=== PATIENT | female | born 1960 | race Caucasian/White ===

== ENCOUNTER 2018-08-22 10:38 | Inpatient (IN) | payer OTHER, MEDICARE, SELFPAY ==
[2018-08-15 08:55] VITALS: BMI 36.0
[2018-08-22] VITALS (16 sets, daily range): BP systolic 82–172; BP diastolic 35–96; PULSE 70–92; RESP 11–21; TEMP 36.1–36.9; O2SAT 94–100; BMI 35.2
--- NOTE | 2018-08-22 06:00 | DI.RAD.S_ITS ---
PROCEDURE: XR PELVIS 1-2V INDICATIONS: prosthesis placement TECHNIQUE: Single view(s) of the pelvis acquired. COMPARISON: None. FINDINGS: Bones: Patient is status post right total hip arthroplasty. Right hip alignment is anatomic. No gross hardware loosening or failure. No fractures or dislocations. Severe left hip joint osteoarthritis is seen. No suspicious bony lesions. Soft tissues: Visualized bowel gas pattern is normal. No suspicious soft tissue calcifications. IMPRESSION: Post right total hip arthroplasty changes with anatomic right hip alignment. No gross hardware complication. Severe left hip joint osteoarthritis. No fracture or dislocation. Dictated by: Maximino Bey M.D. on 08/22/2018 at 16:00 Approved by: Maximino Bey M.D. on 08/22/2018 at 16:01
[2018-08-22] MEDS: ACETAMINOPHEN 325 MG TABLET 975 MG PO ×2 (11:50→20:38)
[2018-08-22] MEDS: CELECOXIB 200 MG CAPSULE PO (11:52)
[2018-08-22] MEDS: LACTATED RINGERS 1,000 ML 42 ML IV (11:52)
--- NOTE | 2018-08-22 13:11 | PM.PREOP ---
Pre-operative Note Interval Note History & Physical reviewed/Exam performed by Physician: Yes Changes to H&P: No
[2018-08-22] MEDS: CEFAZOLIN 2 GM/100 ML FROZ.PIGGY IV ×2 (14:02→22:49)
[2018-08-22] MEDS: TRANEXAMIC ACID 1,000 MG VIAL 1000 MG INJ ×2 (14:28→15:02)
--- NOTE | 2018-08-22 14:33 | SUR.OPER ---
Lateral on padded OR bed. Gel axillary roll. Arms secured on padded armboard with pillow supporting top arm. Padded hip positioner braces x4 - anterior and posterior chest and pelvis. Additional gel pad used anterior pelvis. Gel pad under bottom leg from knee to foot and secured with tape over sheet.
[2018-08-22] MEDS: BUPIVACAINE 0.25% W/ EPI 30 ML VIAL 60 ML INJ (14:41)
[2018-08-22] MEDS: KETOROLAC 30 MG/ML VIAL IV (15:00)
[2018-08-22] MEDS: MORPHINE 4 MG/ML INJ INJ (15:02)
--- NOTE | 2018-08-22 15:10 | PM.OP.1 ---
Operative Date/Time/Diagnoses Date of procedure: 08/22/18 Time of procedure: 15:10 Pre-op diagnosis: Right hip degenerative joint disease Post-op diagnosis: same Procedure & Clinicians Procedure: Right total hip arthroplasty (CPT code 53107 with medicine assistant) Same procedure as scheduled: Yes Indications: Patient is an 57-year-old female with severe right hip DJD. The patient has pain with activities and at rest, limited ambulation and activity tolerance, difficulties with ADLs, and failure of conservative treatment. We have discussed the nature of condition, treatment options, risks and benefits, and patient elects to proceed with total hip arthroplasty and gives informed consent. Surgeon: Don Landrum Wool Tamper: Chu Amaya Anesthesia Type: General and Spinal Operative Notes Closure Type: primary Specimen(s): none sent Prosthetic devices, grafts, tissues, transplants, or devices: Acetabulum: Mcc[employer]en [employer] Nephew R3 acetabular component size 52 mm Femoral component: Mcc[employer]en [employer]hew Anthology stem size 6 with standard offset Femoral head: 36 mm + 0 Oxinium Estimated Blood Loss (mL): 150 Blood products transfused: none Procedure in detail: After satisfaction induction of anesthetic, and administration of IV antibiotics, the patient was positioned in the lateral decubitus position with all bony prominences well padded and pelvic position secured using a hip cement grinding mill operator positioning device. Right hip and lower extremity prepped and draped in the usual sterile fashion, 1st dose of intravenous tranexamic acid was administered, then a longitudinal incision was created centered over the greater trochanter and carried sharply through the skin and subcutaneous tissues down to the fascia henny which was divided longitudinally and retracted with a Charnley retractor. External rotators visualize, cut, tagged, and retracted posteriorly, then the capsule was cut in a T-type fashion with the corners tagged and retracted. Hip was dislocated and femoral neck cut made according to preoperative templating. Acetabular retractors then placed, and the acetabular labrum and osteophytes were excised. The acetabulum was then sequentially reamed to 51 mm with an excellent circumferential ream and fit with the trial. The trial component was removed and a permanent size 52 mm Mccracken [employer] Nephew R3 acetabular component was selected, positioned, and impacted with satisfactory position and fixation achieved. Permanent liner was then inserted with the elevated lip directed posteriorly. Soft tissue then removed off the lateral femoral neck in the lateral neck was entered using a box osteotome. T-handled reamers placed down the canal followed by sequential broaching to 6 with the final broach left in place for trial reduction which demonstrated excellent leg length, range of motion, and stability characteristics with a 36 mm +0 trial ball. The trial and broach were removed, and a permanent size 6 Mccracken [employer] Nephew Anthology stem was selected and inserted with excellent position and fixation achieved. Another trial reduction yielded the above characteristics so the trial ball was exchanged for a permanent 36 mm +0 Oxinium ball. The hip was irrigated and reduced and excellent leg length range of motion and stability characteristics were achieved and maintained. Periarticular tissues were infiltrated with Marcaine, morphine, and Toradol. The hip was copiously irrigated, and the capsule repaired with #2 Ethibond, and the piriformis was repaired back to the greater trochanter with the same. Fascia henny closed with interrupted #1 Ethibond sutures, and the subcutaneous tissues were closed in 2 layers of 0 Vicryl and 2 0 Vicryl. Skin was closed with donald and sterile dressings applied. Second dose of tranexamic acid was administered intravenously, and the anesthetic was terminated. Complications: none Condition: stable Disposition: PACU Plan for aftercare: Patient will be admitted to the acute care [facility], and anticipate discharge on postop day 1-2 with follow-up in office in 10-14 days. Outpatient physical therapy will be arranged and patient will continue to observe posterior hip precautions. Patient will continue use of postoperative Lovenox for 10 days postop.
--- NOTE | 2018-08-22 15:14 | P.OP_ITS ---
Operative Date/Time/Diagnoses Date of procedure: 08/22/18 Time of procedure: 15:10 Pre-op diagnosis: Right hip degenerative joint disease Post-op diagnosis: same Procedure & Clinicians Procedure: Right total hip arthroplasty (CPT code 15091 with anesthesiology physician assistant) Same procedure as scheduled: Yes Indications: Patient is an 57-year-old female with severe right hip DJD. The patient has pain with activities and at rest, limited ambulation and activity tolerance, difficulties with ADLs, and failure of conservative treatment. We have discussed the nature of condition, treatment options, risks and benefits, and patient elects to proceed with total hip arthroplasty and gives informed consent. Surgeon: Don Landrum Rod Buster Helper: Chu Amaya Anesthesia Type: General and Spinal Operative Notes Closure Type: primary Specimen(s): none sent Prosthetic devices, grafts, tissues, transplants, or devices: Acetabulum: Mccracken [employer] Nephew R3 acetabular component size 52 mm Femoral component: Mccracken [employer] Nephew Anthology stem size 6 with standard offset Femoral head: 36 mm + 0 Oxinium Estimated Blood Loss (mL): 150 Blood products transfused: none Procedure in detail: After satisfaction induction of anesthetic, and administration of IV antibiotics, the patient was positioned in the lateral decubitus position with all bony prominences well padded and pelvic position secured using a hip warehouse order selector positioning device. Right hip and lower extremity prepped and draped in the usual sterile fashion, 1st dose of intravenous tranexamic acid was administered, then a longitudinal incision was created centered over the greater trochanter and carried sharply through the skin and subcutaneous tissues down to the fascia henny which was divided longitudinally and retracted with a Charnley retractor. External rotators visualize, cut, tagged, and retracted posteriorly, then the capsule was cut in a T-type fashion with the corners tagged and retracted. Hip was dislocated and femoral neck cut made according to preoperative templating. Acetabular retractors then placed, and the acetabular labrum and osteophytes were excised. The acetabulum was then sequentially reamed to 51 mm with an excellent circumferential ream and fit with the trial. The trial component was removed and a permanent size 52 mm Mccracken and Nephew R3 acetabular component was selected, positioned, and impacted with satisfactory position and fixation achieved. Permanent liner was then inserted with the elevated lip directed posteriorly. Soft tissue then removed off the lateral femoral neck in the lateral neck was entered using a box osteotome. T- handled reamers placed down the canal followed by sequential broaching to 6 with the final broach left in place for trial reduction which demonstrated excellent leg length, range of motion, and stability characteristics with a 36 mm +0 trial ball. The trial and broach were removed, and a permanent size 6 Mccracken [employer] Nephew Anthology stem was selected and inserted with excellent position and fixation achieved. Another trial reduction yielded the above characteristics so the trial ball was exchanged for a permanent 36 mm +0 Oxinium ball. The hip was irrigated and reduced and excellent leg length range of motion and stability characteristics were achieved and maintained. Periarticular tissues were infiltrated with Marcaine, morphine, and Toradol. The hip was copiously irrigated, and the capsule repaired with #2 Ethibond, and the piriformis was repaired back to the greater trochanter with the same. Fascia henny closed with interrupted #1 Ethibond sutures, and the subcutaneous tissues were closed in 2 layers of 0 Vicryl and 2 0 Vicryl. Skin was closed with donald and sterile dressings applied. Second dose of tranexamic acid was administered intravenously, and the anesthetic was terminated. Complications: none Condition: stable Disposition: PACU Plan for aftercare: Patient will be admitted to the acute care [facility], and anticipate discharge on postop day 1-2 with follow-up in office in 10-14 days. Outpatient physical therapy will be arranged and patient will continue to observe posterior hip precautions. Patient will continue use of postoperative Lovenox for 10 days postop.
--- NOTE | 2018-08-22 15:44 | SUR.PHASEI ---
Correction - entry for 1543 intended to be the initial assessment on arrival
--- NOTE | 2018-08-22 15:54 | SUR.PHASEI ---
Declined PO intake x2, skin warm and dry, resp unlabored, smiling and is entertained with odd sensations from spinal. Waiting for AC nurse to call back for report.
--- NOTE | 2018-08-22 16:12 | SUR.PHASEI ---
1602 to room 228, bed down and locked, call light within reach. Patient awake, talking, laughing, able to pump bilateral feet, SCDs on. Clothing and glasses to room. 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 Denies pain, nausea, dressing CDI. Stable with no concerns.
[2018-08-22] MEDS: LACTATED RINGERS 1,000 ML 125 ML IV ×2 (16:25→23:47)
--- NOTE | 2018-08-22 19:06 | PC.ADMIT ---
Admission Note:pt arrived to room at 1710. awake and alert. dsg c.d.i. unable to feel cold. able to wiggle toes and move ankles. vss. belongings and call light within reach. uses call goel. oriented to room and hospital procedures. will continue to monitor pt for safety.
[2018-08-22] MEDS: hydrOXYzine pamoate 25 MG CAPSULE PO (20:38)
[2018-08-22] MEDS: HYDROCODONE/ACET 5/325 TABLET 1 TAB PO (22:49)
[2018-08-23] MEDS: HYDROCODONE/ACET 5/325 TABLET 1 TAB PO ×3 (03:05→14:42)
--- NOTE | 2018-08-23 03:16 | PC.NURSE ---
Pt is very pleasant and co-operative. Has been up during evening shift to bedside commode. Medicating w/ [place] Q4, pain level has been 4-5/10. Pt's lung sounds are clear bilaterally, pt is hypertensive w/ BP169/96 P93, but states that she has white coat syndrome and that pain makes her blood pressure higher. She has ice packs on her hip and bilateral SCD's. CMS is intact, and Bulk Dressing has some shadowing that was outlined by evening shift. Pillow placement to keep knees abducted.
--- NOTE | 2018-08-23 04:55 | RT ---
ETCO2 AND CPAP BOTH REFUSED BY PT AT APPROX. 1930 ON 08/22/18.
[2018-08-23 05:14] VITALS: BP 135/63; PULSE 91; RESP 16; TEMP 36.2; O2SAT 91
[2018-08-23 05:40] LABS: Hematocrit 35.7 % (36-46); Hemoglobin 11.7 g/dL (12.0-16.0)
[2018-08-23] MEDS: CEFAZOLIN 2 GM/100 ML FROZ.PIGGY IV (06:03)
[2018-08-23 08:00] VITALS: BP 125/71; PULSE 83; RESP 16; TEMP 36.1; O2SAT 95
[2018-08-23] MEDS: ACETAMINOPHEN 325 MG TABLET 975 MG PO ×3 (08:42→20:11)
[2018-08-23] MEDS: ENOXAPARIN 40 MG/0.4 ML SYRINGE SUBCUT (08:44)
--- NOTE | 2018-08-23 09:50 | PM.DS.1 ---
History of Present Illness Date Patient Seen: 08/23/18 Time Patient Seen: 09:50 Chief complaint: 19644 Right Total Hip Arthroplasty Narrative: Patient is an 57-year-old female with severe right hip DJD. The patient has pain with activities and at rest, limited ambulation and activity tolerance, difficulties with ADLs, and failure of conservative treatment. We have discussed the nature of condition, treatment options, risks and benefits, and patient elects to proceed with total hip arthroplasty and gives informed consent. Discharge Providers Date of admission: 08/22/18 10:38 Discharge Date: 08/23/18 Consults: 08/15/18 09:51 Consult to Respiratory Therapy Evaluate & Treat Comment: RT VA 08/22, Sleep apnea, intolerant to CPAP Physician Instructions: Evaluate and treat 08/22/18 06:00 Consult to Anesthesiology Routine Comment: Consulting Provider: Anesthesiologist Reason for consultation: Regional block for post operative pain control 08/22/18 12:07 Consult to Respiratory Therapy Evaluate & Treat Comment: Physician Instructions: Evaluate and treat 08/22/18 16:15 Consult to Discharge Planning Routine Comment: Consult to Physical Therapy Evaluate & Treat Comment: Physician Instructions: post op [facility] protocol Consult to Respiratory Therapy Evaluate & Treat Comment: Physician Instructions: Evaluate and treat Discharge provider: Radha Graham PA-C Summary Discharge Diagnosis: s/p right hip arthroplasty Hospital Course: After obtaining informed consent patient was taken to the operating room on 08/23/18 for a right posterior total hip arthroplasty. She has been progressing well in the post operative period. She had some issues with muscle spasms overnight that were well controlled with Vistaril. She has been mobilizing about the room. She is voiding independently and tolerating a diet. Her is available at home as caregiver. She was prescribed Vistaril and Oxycodone at her preop visit and has supply at home. She will be discharged with supply of Lovenox. Status at Discharge Cognitive/behavioral status at discharge: oriented Functional status at discharge: uses cane/walker Overall status at discharge: patient is progressing back to baseline Exam Vital Signs (past 8 hours): - 08/23/18 05:14 08/23/18 08:00 Temperature 97.2 F L 97.0 F L Pulse Rate 91 H 83 Respiratory Rate 16 16 Blood Pressure 135/63 125/71 Pulse Oximetry 91 95 Oxygen Delivery Method Room Air Oxygen Flow Rate 0 Narrative Exam Narrative: Pleasant 57 year old female resting comfortably in bed in no acute distress. Alert and oriented. Dressing in place over right hip is clean, dry, and intact. Neurovascularly intact. Calves are soft and nontender bilaterally. Objective Labs Result Diagrams: 08/23/18 05:23 Labs: Laboratory Results - last 24 hr 08/23/18 05:23 Hgb 11.7 L Hct 35.7 L Discharge Plan Discharge Plan Patient Disposition: Home Discharge comment: Home if cleared by PT Discharge Med Rec/Prescriptions Prescriptions: New acetaminophen 325 mg Tablet 975 mg PO TID Qty: 60 RF: 0 hydroxyzine pamoate 25 mg Capsule 25 mg PO Q6HR PRN (Reason: Spasms) Qty: 60 RF: 0 enoxaparin [Lovenox] 40 mg/0.4 mL Syringe 40 mg subcut DAILY 9 Days Qty: 9 RF: 0 Continued tramadol 50 mg Tablet 50 mg PO BID PRN (Reason: Pain) RF: 0 diclofenac potassium 50 mg Tablet 50 mg PO BID RF: 0 fluticasone propionate [Flonase Allergy Relief] 50 mcg/actuation [place],Suspension 1 spray INTRANASAL DAILY PRN (Reason: Seasonal allergies) RF: 0 Discontinued naproxen sodium [Aleve] 220 mg Tablet 440 mg PO BID PRN (Reason: Pain) RF: 0 Follow up/Referrals: Don Landrum MD [Physician] - Provider Discharge Instructions Diet: Diet as Tolerated Activity: Weight bear as tolerated. Posterior hip precautions. Cold/Heat Therapy: Ice packs PRN Skin/Wound/Dressing Care Dressing: Leave dressing in place. Other wound treatment: Follow [employer] guide. Visit Report/Discharge Packet Instructions: DI for Hip Replacement Discharge Data Attending Provider: Don Landrum Admit Date/Time: 08/22/18 10:38 Quality VTE Deep Vein Thrombosis/Pulmonary Embolism Present on Admission: No
--- NOTE | 2018-08-23 11:15 | PT.IIE ---
Current Diagnoses Unilateral primary osteoarthritis, right hip (08/22/18) Surgery Performed Operation Date: 08/22/18 13:45 Actual Procedures p Total Hip Arthroplasty(Right) - Don Landrum MD Surgical History (Last Updated 08/15/18 @ 12:04 by Blanca Booker, RN) History of conization of cervix (Acute ~1991) Hx of brain surgery (Acute 01/03/18) Medical History (Last Updated 08/15/18 @ 09:29 by Blanca Booker RN) Anxiety (Acute) Arthritis (Acute) Bilateral hip pain (Acute) Cervical cancer (Acute) Eczema (Acute) Fibroids (Acute) Fibromyalgia (Acute) HTN (hypertension) (Acute) Hypothyroidism (Acute) IBS (irritable bowel syndrome) (Acute) Kidney stone (Acute ~1991) Left wrist fracture (Acute 05/10/18) Lower back pain (Acute) Osteoarthritis (Acute) Ovarian cyst, left (Acute) Pancreatitis (Acute) Pneumonia (Acute) Right wrist fracture (Acute ~05/2015) Sleep apnea (Acute) Physical Therapy Inpatient Evaluation/Re-Eval M1 PT/OT-IP Prior Functional Status Start: 08/23/18 08:31 Freq: NEEDED Status: Active Protocol: Document 08/23/18 11:15 RS (Rec: 08/23/18 14:47 RS [id number]) Medical Review Prior Functional Status Medical History Reviewed Yes Diet/Fluid Consistency Regular Communication no known deficits Mobility and Gait uses a SPC or FWW for all mobility, denies falls Activities of Daily Living and IADL's doesn't get help for self-care Social History Household Members spouse Living Arrangements House Number of Floors (Floors) One Floor Number of Stairs To Enter/Railing? 1STE Home Equipment Front Wheel Walker Straight Cane Additional Social History Comment lives in [place], limited services available M2 PT-IP Current Condition Start: 08/23/18 08:31 Freq: NEEDED Status: Active Protocol: Document 08/23/18 11:15 RS (Rec: 08/23/18 14:47 RS [id number]) Physical Therapy Current Condition Current Condition Evaluation Date 08/23/18 Treatment Diagnosis R posterior hip arthroplasty Onset Date 08/22/18 Precautions Posterior Hip Precautions No Hip Flexion > 90 degrees No Hip Internal Rotation No Hip Adduction Weight Bearing Status Weight Bearing Status Weight Bear as Tolerated M3 PT-IP Subjective Start: 08/23/18 08:31 Freq: NEEDED Status: Active Protocol: Document 08/23/18 11:15 RS (Rec: 08/23/18 14:47 RS [id number]) Subjective Physical Therapy Visit Type Type Initial Evaluation Visit Start Time 10:30 Visit Stop Time 11:15 Total Visit Minutes 45 Physical Therapy Visit Comments Patient Comments Pt motivated to get up and moving. Patient Goals I want to do whatever needs to be done to get better Therapy Pain Assessment Pain When Pain Assessed During Mobility Pain Present Pain Present Pain Reported Location Right Hip Intensity 8 Description With Movement Pain Behaviors Facial Grimacing Guarding Holding Area Wincing Pain Management Techniques Apply Cold Elevation Modification of Treatment Re-positioning Timing of Activity with Medications M4 PT-IP Mobility and Gait Start: 08/23/18 08:31 Freq: NEEDED Status: Active Protocol: Document 08/23/18 11:15 RS (Rec: 08/23/18 14:47 RS [id number]) PT-Bed Mobility Assessment Supine to Sit Supine to Sit Minimal Assistance Sit to Supine Sit to Supine Moderate Assistance Scooting Scooting to Edge of Bed Contact Guard Assistance Scooting Up and Down in Bed Maximum Assistance PT-Transfer Assessment Sit to and From Stand Sit to and from Stand Minimal Assistance 1 Person Assistance Use of Upper Extremities Equipment Transfer Assistive Device Gait Belt Front Wheeled Walker Orthotic/Prosthetic Devices or Brace: No Transfers Transfer Destination Bed Chair Transfer Technique Stand Pivot Transfer Ability Level of Assist Minimal Assistance 1 Person Assistance Use of Upper Extremities Comments Mobility Comments Pt unable to use BUE for offloading the RLE in standing due to significant bilat wrist pain (chronic issue). Pt with minimal movement of RLE when upright and barely able to unweight the LLE for transfers. Gait Assessment Comments Gait Comments unable to perform, pt can barely move RLE to advance leg and is unable to tolerate unweighting the LLE to advance that leg either. Stair Climbing Assessment Comments Stair Climbing Comments not tested PT-Balance Assessment Sitting Balance and Reactions Static Sitting Balance Ability Normal Dynamic Sitting Balance Ability Good Standing Balance and Reactions Static Standing Balance Ability Fair Dynamic Standing Balance Ability Poor Device Used FWW M5 PT-IP Objective Assessments Start: 08/23/18 08:31 Freq: NEEDED Status: Active Protocol: Document 08/23/18 11:15 RS (Rec: 08/23/18 14:47 RS [id number]) Orientation Orientation/Cognition Level of Alertness Alert Orientation Name Age Birthday Month Date Year Day of Week Place Situation Language Function Ability No Deficits Noted Safety Awareness Understands Safety Issues Memory Description No Deficits Noted Gross Range of Motion Upper Extremity ROM Assessment Within Functional Limits Lower Extremity ROM Impairments RLE limited by posterior hip precautions Strength Comments Strength Comments BUE not formally assessed but presents with at least antigravity LLE grossly 4-/5 RLE grossly 2+/5 Sensation Assessment Sensation Gross Sensation Right LE Impaired Left LE Impaired Light Touch Impaired Proprioception (Position) Impaired Sensation Description Numbness Pins [employer] Mcc[place] M6 PT-IP Treatment Start: 08/23/18 08:31 Freq: NEEDED Status: Active Protocol: Document 08/23/18 11:15 RS (Rec: 08/23/18 14:47 [id number]) Physical Therapy Treatment Exercises Exercises Ankle Pumps Gluteal Sets Quad Sets Heel Slides Supine Hip Abduction Education Education Provided Precautions Weight Bearing Status Post-Op Packet Safety M7 PT-IP Assessment and Plan Start: 08/23/18 08:31 Freq: NEEDED Status: Active Protocol: Document 08/23/18 11:15 RS (Rec: 08/23/18 14:47 [id number]) PT Summary Assessment and Plan Potential Rehabilitation Potential Fair Status of Condition at Evaluation Evolving Summary Impairments Pain ROM Strength Balance Bed Mobility Transfers Gait Activity Tolerance Assessment Summary Pt is POD#1 R posterior [place]. Pt presents with signifcant pain and weakness resulting in mobility limitations. Pt is able to perform bed mobility with min<>mod A and stand- pivot transfers with min A using FWW, however, pt is unable to move the R leg enough to take a R step nor is she able to unweight the LLE to take a L step. Part of this could be do to pt's inability to use BUE on walker for unweighting of the legs due to wrist pain/instability. Will trial bilat platform walker in PM session. Pending the result of this trial, pt may need to go to SNF rehab once medically cleared. Goals Bed Mobility Goal Standby Assistance Transfer Goal Standby Assistance Front Wheeled Walker Gait Goal Standby Assistance Front Wheel Walker Gait Distance 30 Other Goals up/down one step with FWW and CGA<>SBA Days to Meet Goals 5 Frequency of Treatment Frequency Of Treatment Twice a Day Treatment Plan Physical Therapy Treatment Plan Bed Mobility Training Transfer Training Gait Training Therapeutic Exercise Balance Retraining Post Op Education Discharge Planning Hot or Cold Pack Neuromuscular Re-ed Coordination Retraining Manual Therapy Other Recommendations and Next Treatment trial bilat platform walker Focus Recommendations To Nursing Amount of Assist Needed 1 Person Assist Discharge Recommendations PT Discharge Recommendations SNF Rehab
[2018-08-23 11:35] VITALS: BP 121/77; PULSE 82; RESP 16; TEMP 36.6; O2SAT 97
--- NOTE | 2018-08-23 11:45 | CM.DANOTE ---
Addendum entered by Rachel Ortiz R.N. 08/23/18 15:20: Discussed discharge planning with patient. She is discouraged that she did not do well today with P.t. She is open to alf if [facility] will approve. Chose [facility] as her first choice, and [facility] as second. let her know that she may not be approved, but would fax over P.T. notes. Verified that her telephonic case manager at [facility] is Caroline. Left her a voice mail, and faxed over latest P.T. note. Faxed face sheet to [facility] for now, since they do have female bed availability. Mentioned home health as second option, and she stated, she's not comfortable with having people come to her house, but it is not out of the question. Addendum entered by Rachel Ortiz R.N. 08/23/18 14:01: Patient was to be discharged home today, but may not. She is still working with physical therapy, and unsure at this time if she will be cleared. Will consult with therapy team if additional resources may be needed. Original Note: DCP: Case received, EMR reviewed and met with patient. Introduced self and role. Was able to obtain information from patient regarding her medical history, and baseline health. DCP template assessment completed from information available. Patient is a 57 year old female who admitted yesterday morning to the care of the surgical team. PCP: Dr. jovanny Beck at [facility] in [place]. Payer: [facility]. Patient came to hospital for surgical procedure. She had Right Total Hip Arthroplasty. She has history of Degenerative Joint Disease. Met with patient in her room. Alert and oriented, pleasant. She stated that she also plans to have her other hip done, and is anxious about recovery time for this. She lives in [place], with her , Ambrose. She stated that he will be taking some time off work to help her out. She stated that she also had a brain tumor removed last year. She has been for about 9 years, and has 2 children who live in [place] from a previous marriage. She stated that she lives in a cabin, no stairs, and has a cane that she uses. She will be working with physical therapy team today. P: DCP to continue to follow. She should be able to go home, and could be discharged today. This will depend upon how she does with physical therapy team. Rachel Ortiz RN/Wet Room Supervisor
--- NOTE | 2018-08-23 14:05 | PT.IPTN ---
Current Diagnoses Unilateral primary osteoarthritis, right hip (08/22/18) Surgery Performed Operation Date: 08/22/18 13:45 Actual Procedures p Total Hip Arthroplasty(Right) - Don Landrum MD Physical Therapy Treatment Note M2 PT-IP Current Condition Start: 08/23/18 08:31 Freq: NEEDED Status: Active Protocol: Document 08/23/18 11:15 RS (Rec: 08/23/18 14:47 RS [id number]) Physical Therapy Current Condition Current Condition Evaluation Date 08/23/18 Treatment Diagnosis R posterior hip arthroplasty Onset Date 08/22/18 Precautions Posterior Hip Precautions No Hip Flexion > 90 degrees No Hip Internal Rotation No Hip Adduction Weight Bearing Status Weight Bearing Status Weight Bear as Tolerated M3 PT-IP Subjective Start: 08/23/18 08:31 Freq: NEEDED Status: Active Protocol: Document 08/23/18 14:49 RS (Rec: 08/23/18 14:58 RS [id number]) Subjective Physical Therapy Visit Type Type Treatment Note Visit Start Time 13:00 Visit Stop Time 14:05 Total Visit Minutes 65 Physical Therapy Visit Comments Patient Comments Pt not feeling much pain to start, looking forward to trying platform walker. Therapy Pain Assessment Pain When Pain Assessed During Mobility Pain Present Pain Present Pain Reported Location Right Hip Intensity 9 M4 PT-IP Mobility and Gait Start: 08/23/18 08:31 Freq: NEEDED Status: Active Protocol: Document 08/23/18 14:49 RS (Rec: 08/23/18 14:58 RS [id number]) PT-Bed Mobility Assessment Sit to Supine Sit to Supine Moderate Assistance PT-Transfer Assessment Sit to and From Stand Sit to and from Stand Minimal Assistance 1 Person Assistance Use of Upper Extremities Equipment Transfer Assistive Device Gait Belt Platform Walker Orthotic/Prosthetic Devices or Brace: No Transfers Transfer Destination Bed Chair Transfer Technique Stand Pivot Transfer Ability Level of Assist Minimal Assistance 1 Person Assistance Use of Upper Extremities Comments Mobility Comments Still challenging to be able to lift either leg though slightly better with platform walker compared to standard FWW, still needing min A. Pt still slightly collpases what trying to lift LLE to take a step. Gait Assessment Comments Gait Comments gait not actually able to be completed. Attempted several configurations with bilat platforms to find the set-up for best leverage. Once that was found pt was able to lift the LLE better, but this time pt had almost no control of the RLE for advancement. Pt couldn't DF the R ankle, toe kept getting stuck. Even with manual assist at the R ankle for toe clearance, pt still unable to bring leg forward at all without max assist for that leg. Stair Climbing Assessment Comments Stair Climbing Comments not tested PT-Balance Assessment Sitting Balance and Reactions Static Sitting Balance Ability Normal Dynamic Sitting Balance Ability Good Standing Balance and Reactions Static Standing Balance Ability Fair Dynamic Standing Balance Ability Poor Device Used FWW M5 PT-IP Objective Assessments Start: 08/23/18 08:31 Freq: NEEDED Status: Active Protocol: Document 08/23/18 11:15 RS (Rec: 08/23/18 14:47 RS [id number]) Orientation Orientation/Cognition Level of Alertness Alert Orientation Name Age Birthday Month Date Year Day of Week Place Situation Language Function Ability No Deficits Noted Safety Awareness Understands Safety Issues Memory Description No Deficits Noted Gross Range of Motion Upper Extremity ROM Assessment Within Functional Limits Lower Extremity ROM Impairments RLE limited by posterior hip precautions Strength Comments Strength Comments BUE not formally assessed but presents with at least antigravity LLE grossly 4-/5 RLE grossly 2+/5 Sensation Assessment Sensation Gross Sensation Right LE Impaired Left LE Impaired Light Touch Impaired Proprioception (Position) Impaired Sensation Description Numbness Pins & Dola M6 PT-IP Treatment Start: 08/23/18 08:31 Freq: NEEDED Status: Active Protocol: Document 08/23/18 11:15 RS (Rec: 08/23/18 14:47 RS [id number]) Physical Therapy Treatment Exercises Exercises Ankle Pumps Gluteal Sets Quad Sets Heel Slides Supine Hip Abduction Education Education Provided Precautions Weight Bearing Status Post-Op Packet Safety M7 PT-IP Assessment and Plan Start: 08/23/18 08:31 Freq: NEEDED Status: Active Protocol: Document 08/23/18 14:49 RS (Rec: 08/23/18 14:58 RS [id number]) PT Summary Assessment and Plan Potential Rehabilitation Potential Fair Status of Condition at Evaluation Evolving Summary Impairments Pain ROM Strength Balance Bed Mobility Transfers Gait Activity Tolerance Progress Towards Goals Slow Progress due to Pain Slow Progress - Other Assessment Summary Pt is POD#1 R posterior AV. Pt continues to present with significant pain and RLE weakness, essentially present with poor motor control today. With use of bilat platform walker pt was better able to unweight the LLE to take a small L step, however, pt unable to move the R foot/ ankle at all and needed max A to advance the RLE. Patient is not safe to discharge to home setting at this time. She does have potential for functional improvement and will benefit from daily low intensity skilled PT at SNF rehab. Pt is open to this idea but understands it must be approved by her insurance first. If pt is unable to go to SNF, pt will need 24/7 assist, manual wc, and HHPT upon discharge. Goals Bed Mobility Goal Standby Assistance Transfer Goal Standby Assistance Front Wheeled Walker Gait Goal Standby Assistance Front Wheel Walker Gait Distance 30 Other Goals up/down one step with FWW and CGA<>SBA Days to Meet Goals 5 Frequency of Treatment Frequency Of Treatment Twice a Day Treatment Plan Physical Therapy Treatment Plan Bed Mobility Training Transfer Training Gait Training Therapeutic Exercise Balance Retraining Post Op Education Discharge Planning Hot or Cold Pack Neuromuscular Re-ed Coordination Retraining Manual Therapy Other Recommendations and Next Treatment trial bilat platform walker Focus Recommendations To Nursing Amount of Assist Needed 1 Person Assist Discharge Recommendations PT Discharge Recommendations SNF Rehab
[2018-08-23] MEDS: hydrOXYzine pamoate 25 MG CAPSULE PO (15:27)
[2018-08-23 16:13] VITALS: BP 120/77; PULSE 83; RESP 19; TEMP 36.4; O2SAT 98
--- NOTE | 2018-08-23 18:52 | PC.NURSE ---
Addendum entered by Maria Chapman R.N. 08/23/18 21:11: Pt had relatively uneventful evening. Denies discomfort when asked. HL intact/patent. Dsg to right hip remains essentially unchanged. Satisfactory post op course. Call light w/in reach/ bed alarm on for pt safety. continue w/plan of care. Original Note: Pt med @ 1500 w/vistaril for muscle spams w/good relief. Lungs clear, SpO2 97% RA Dsg to right hip w/ small shadow draiange at this time. HL intact/patent. Assisted to BSC w/o incidence. Call light w/in reach, bed alarm on for pt safety.
[2018-08-23 23:30] VITALS: BP 120/66; PULSE 88; RESP 16; TEMP 36.8; O2SAT 98
[2018-08-24] MEDS: hydrOXYzine pamoate 25 MG CAPSULE PO ×3 (02:12→14:32)
[2018-08-24 04:30] VITALS: BP 138/72; PULSE 84; RESP 16; TEMP 36.8; O2SAT 98
[2018-08-24 08:04] VITALS: BP 144/86; PULSE 84; RESP 16; TEMP 36.7; O2SAT 93
[2018-08-24] MEDS: HYDROCODONE/ACET 5/325 TABLET 1 TAB PO ×2 (08:06→12:41)
[2018-08-24] MEDS: ACETAMINOPHEN 325 MG TABLET 975 MG PO ×3 (08:07→20:46)
--- NOTE | 2018-08-24 08:10 | CM.DPC ---
Addendum entered by Analia Reina LPN 08/24/18 16:06: Have spoken with pt who confirms she is very hopeful for a rehab stay. She notes her L hip is very painful, worse than R and this coupled with the brain surgery and inability to exercise has left her very deconditioned. She says she thinks her recovery will go much better if she is allowed a short snf stay but If I have to go home we will figure it out. Mentioned the appeal process if [facility] does deny the snf auth initially....will be following. Addendum entered by Analia Reina LPN 08/24/18 15:37: Have been updated now by PT/OT. They continue to recommend snf stay. Have left a vm now for [facility], on today for Ernestine Bonds. [facility] does have a bed if need continues and snf is auth'd. Will update pt now. Original Note: DCP: continued: Case received, EMR reviewed. Noted: the dc summary yesterday morning from jj Garcia stating that pt was going home with spouse assist. Noted: PT session noted with PT recommending SNF rehab. Noted: pt was post of day one yesterday. Pt has payer: Live: OT order is now obtained to help pt progress with her care in the hospital and also to provide further info to [facility] for snf auth consideration. P: will discuss in Team Rounds and will be following up with pt as the day progresses. Note SNF choices: per prior DC finished goods planner report: [facility] and if no beds [facility] (both are [facility] facilities). Live CM: as of PAS Report yesterday: not assigned yet.
--- NOTE | 2018-08-24 08:27 | PM.PNPO.1 ---
Subjective Date Patient Seen: 08/24/18 Time Patient Seen: 08:27 Interval history: Pain mild to moderate. Denies fever chills. No nausea vomiting. Patient had difficulty ambulating yesterday with physical therapy. She was also getting significant muscle spasms. Muscle spasms seem to be improved this morning. Physical therapy has not been by to work with her yet. Exam Vital Signs (past 8 hours): - 08/24/18 04:30 08/24/18 08:04 Temperature 98.3 F 98.1 F Pulse Rate 84 84 Respiratory Rate 16 16 Blood Pressure 138/72 144/86 H Pulse Oximetry 98 93 Oxygen Delivery Method Room Air Oxygen Flow Rate 0 Narrative Exam Narrative: Pleasant 57-year-old female resting comfortably in bed in no apparent distress. Right hip dressing is clean, dry and intact. Motor function is intact distally. Sensation is grossly intact to light touch. Objective Labs Result Diagrams: 08/23/18 05:23 Assessment & Plan Post-op Postoperative Procedures Operation Date: 08/22/18 13:45 Actual Procedures Side Surgeon p Total Hip Arthroplasty Right Don Landrum MD Postop day 2 status post right total hip arthroplasty. Patient having difficulty with muscle spasms some mobility. Continue work with physical therapy. Possible discharge home later today if physical therapy goes well. Quality VTE Deep Vein Thrombosis/Pulmonary Embolism Present on Admission: No
[2018-08-24 12:21] VITALS: BP 120/70; PULSE 90; RESP 16; TEMP 36.6; O2SAT 97
--- NOTE | 2018-08-24 12:34 | PT.IPTN ---
Current Diagnoses Unilateral primary osteoarthritis, right hip (08/22/18) Surgery Performed Operation Date: 08/22/18 13:45 Actual Procedures p Total Hip Arthroplasty(Right) - Don Landrum MD Physical Therapy Treatment Note M2 PT-IP Current Condition Start: 08/23/18 08:31 Freq: NEEDED Status: Active Protocol: Document 08/23/18 11:15 RS (Rec: 08/23/18 14:47 RS [id number]) Physical Therapy Current Condition Current Condition Evaluation Date 08/23/18 Treatment Diagnosis R posterior hip arthroplasty Onset Date 08/22/18 Precautions Posterior Hip Precautions No Hip Flexion > 90 degrees No Hip Internal Rotation No Hip Adduction Weight Bearing Status Weight Bearing Status Weight Bear as Tolerated M3 PT-IP Subjective Start: 08/23/18 08:31 Freq: NEEDED Status: Active Protocol: Document 08/24/18 12:19 SA (Rec: 08/24/18 12:34 SA [id number]) Subjective Physical Therapy Visit Type Type Treatment Note Visit Start Time 08:58 Visit Stop Time 09:30 Total Visit Minutes 32 Number of TOOL TURRET LATHE SET UP OPERATOR Visits 1 Physical Therapy Visit Comments Patient Comments Pt eager to try walking today, was very disapointed with her performance in PT yesterday. Patient Goals To go home but states she may want to go to SNF. Therapy Pain Assessment Pain When Pain Assessed During Mobility Pain Present Pain Present Pain Reported Location Right Hip Intensity 4 Pain Behaviors Wincing Pain Management Techniques Apply Cold Elevation Modification of Treatment Re-positioning Timing of Activity with Medications M4 PT-IP Mobility and Gait Start: 08/23/18 08:31 Freq: NEEDED Status: Active Protocol: Document 08/24/18 12:19 SA (Rec: 08/24/18 12:34 [id number]) PT-Bed Mobility Assessment Rolling Type of Rolling Roll to Left Supine to Sit Supine to Sit Contact Guard Assistance Scooting Scooting to Edge of Bed Contact Guard Assistance PT-Transfer Assessment Sit to and From Stand Sit to and from Stand Contact Guard Assistance Minimal Assistance 1 Person Assistance Equipment Transfer Assistive Device Gait Belt Platform Walker Orthotic/Prosthetic Devices or Brace: No Transfers Transfer Destination Bed Chair Transfer Ability Level of Assist Contact Guard Assistance 1 Person Assistance Comments Mobility Comments Pt able to clear LEs over EOB with slow, segmental movements . CGA with transfers with PFW, needs cues for safety. Gait Assessment Gait Gait Assistance Required: Contact Guard Assist Distance (Feet) 65 Able to Maintain Weight Bearing Status Yes During Gait Assistive Devices Assistive Device Platform Walker Orthotic/Prosthetic Devices or Brace: No Gait Deviations General Gait Pattern Antalgic Decreased Stride Length Decreased Feet Clearance Factors Limiting Gait Function Factors Limiting Gait Function Decreased Activity Tolerance Decreased Strength Pain Poor Safety Awareness Comments Gait Comments Improved gait today with CGA and cues for RLE ankle DF for R foot clearance, Able to progress to longer step length with cues. Fatigues rapidly. Stair Climbing Assessment Comments Stair Climbing Comments Plan to trial this PM, fatigued after walking this AM . Pt has 5 steps without rails , working on a rail for d/c home. M5 PT-IP Objective Assessments Start: 08/23/18 08:31 Freq: NEEDED Status: Active Protocol: Document 08/23/18 11:15 RS (Rec: 08/23/18 14:47 RS [id number]) Orientation Orientation/Cognition Level of Alertness Alert Orientation Name Age Birthday Month Date Year Day of Week Place Situation Language Function Ability No Deficits Noted Safety Awareness Understands Safety Issues Memory Description No Deficits Noted Gross Range of Motion Upper Extremity ROM Assessment Within Functional Limits Lower Extremity ROM Impairments RLE limited by posterior hip precautions Strength Comments Strength Comments BUE not formally assessed but presents with at least antigravity LLE grossly 4-/5 RLE grossly 2+/5 Sensation Assessment Sensation Gross Sensation Right LE Impaired Left LE Impaired Light Touch Impaired Proprioception (Position) Impaired Sensation Description Numbness Pins & Albin M6 PT-IP Treatment Start: 08/23/18 08:31 Freq: NEEDED Status: Active Protocol: Document 08/24/18 12:19 (Rec: 08/24/18 12:34 [id number]) Physical Therapy Treatment Exercises Exercises Ankle Pumps Gluteal Sets Quad Sets Heel Slides Supine Hip Abduction Education Education Provided Precautions Weight Bearing Status Post-Op Packet Safety M7 PT-IP Assessment and Plan Start: 08/23/18 08:31 Freq: NEEDED Status: Active Protocol: Document 08/24/18 12:19 (Rec: 08/24/18 12:34 [id number]) PT Summary Assessment and Plan Summary Assessment Summary Verbal and visual review of hip precautions. Pt prefers FWW with B platforms and tends to WB heavily through forearms. Concern if pt has enough room in small cabin for PFW use. Recommend pt going home with PFW at this time d/t her reliance on UEs for support. Frequency of Treatment Frequency Of Treatment Twice a Day Treatment Plan Physical Therapy Treatment Plan Bed Mobility Training Transfer Training Gait Training Therapeutic Exercise Balance Retraining Post Op Education Discharge Planning Hot or Cold Pack Neuromuscular Re-ed Coordination Retraining Manual Therapy Recommendations To Nursing Amount of Assist Needed 1 Person Assist Discharge Recommendations PT Discharge Recommendations Home with 24/7 Assist SNF Rehab Other Discharge Recommendations Probable d/c home with as primary caregiver, rails need to be completed prior to d/c home so pt is able to safely get into home. Equipment Needed for Home Before B platforms Discharge
--- NOTE | 2018-08-24 13:53 | OT.IP.EVAL ---
Current Diagnoses Unilateral primary osteoarthritis, right hip (08/22/18) Surgery Performed Operation Date: 08/22/18 13:45 Actual Procedures p Total Hip Arthroplasty(Right) - Don Landrum MD Past Medical History (Last Updated 08/15/18 @ 09:29 by Blanca Booker RN) Anxiety (Acute) Arthritis (Acute) Bilateral hip pain (Acute) Cervical cancer (Acute) Eczema (Acute) Fibroids (Acute) Fibromyalgia (Acute) HTN (hypertension) (Acute) Hypothyroidism (Acute) IBS (irritable bowel syndrome) (Acute) Kidney stone (Acute ~1991) Left wrist fracture (Acute 05/10/18) Lower back pain (Acute) Osteoarthritis (Acute) Ovarian cyst, left (Acute) Pancreatitis (Acute) Pneumonia (Acute) Right wrist fracture (Acute ~05/2015) Sleep apnea (Acute) Surgical History (Last Updated 08/15/18 @ 12:04 by Blanca Booker RN) History of conization of cervix (Acute ~1991) Hx of brain surgery (Acute 01/03/18) Occupational Therapy Inpatient Evaluation/Re-Eval M1 PT/OT-IP Prior Functional Status Start: 08/24/18 13:11 Freq: NEEDED Status: Active Protocol: Document 08/24/18 13:11 [facility] (Rec: 08/24/18 13:53 [facility] [id number]) Medical Review Prior Functional Status Medical History Reviewed Yes Diet/Fluid Consistency Regular Communication no known deficits Mobility and Gait uses a SPC or FWW for all mobility, denies falls Activities of Daily Living and IADL's doesn't get help for self-care Social History Household Members spouse Living Arrangements House Number of Floors (Floors) One Floor Number of Stairs To Enter/Railing? At this time pt's trying to build steps to get into the cabin. Planning to have two steps , deck and another 3 steps. Per pt 3 steps had board on left side to use or lean to . Home Equipment Front Wheel Walker Straight Cane Raised Toilet Seat Without Armrests Tub Transfer [employer] Internship Held Shower Long Handled Sponge Sock Aid Additional Social History Comment lives in [place], limited services available. Pt lives in a cabin and FWW able to get through front door and bedroom door, but not the bathroom door. M2 OT-IP Current Condition Start: 08/24/18 13:11 Freq: Status: Active Protocol: Document 08/24/18 13:11 [facility] (Rec: 08/24/18 13:53 [facility] [id number]) Occupational Therapy Current Condition Current Condition Evaluation Date 08/24/18 Treatment Diagnosis s/p R [facility] Diagnosis Onset Date 08/22/18 Post Operative Precautions Posterior Hip Precautions No Hip Flexion > 90 degrees No Hip Internal Rotation No Hip Adduction Weight Bearing Status Weight Bearing Status Weight Bear as Tolerated M3 OT- IP Subjective and Pain Start: 08/24/18 13:11 Freq: Status: Active Protocol: Document 08/24/18 13:11 [facility] (Rec: 08/24/18 13:53 [facility] [id number]) OT- Subjective Occupational Therapy Visit Type Type Initial Evaluation Visit Start Time 10:15 Visit Stop Time 11:25 Total Visit Minutes 70 Occupational Therapy Visit Comments Patient Comments Pt has some concerns about going home, but wants to go home. OT Pain Assessment Pain When Pain Assessed At Rest Pain Present Pain Present Denied Pain M4 OT- IP ADL's Start: 08/24/18 13:11 Freq: Status: Active Protocol: Document 08/24/18 13:11 [facility] (Rec: 08/24/18 13:53 [facility] [id number]) OT [id number] General Evaluation Self-Feeding Ability Independent OT ADL-Grooming Comments OT Grooming Comments Pt states already did grooming in AM. OT ADL-Dressing General Eval Lower Body Dressing Ability Maximum Assistance Areas Needing Assistance Socks Comments OT Dressing Comments Educated pt on use of project developer to assist to mansi/doff socks OT ADL-Toileting General Evaluation Toileting Ability Standby Assistance Comments OT Toileting Comments VC to incorporate hip precautions as pt tends to lean forwards too far. Better to stand and wipe. OT ADL-Bathing Comments OT Bathing Comments Pt not wanting to shower at this time. M5 OT- IP IADL's Start: 08/24/18 13:11 Freq: Status: Active Protocol: Document 08/24/18 13:11 [facility] (Rec: 08/24/18 13:53 [facility] [id number]) OT-Instrumental Activities of Daily Living Home Safety Awareness Ability to Problem Solve Emergency Able to Problem Solve Situations Meal Preparation Meal Preparation Comments Pt states uses a stool in the kitchen to sit at times. [employer]er Driver [employer]er Driver Caregiver Provides Assist M6 OT- IP Functional Cognition Start: 08/24/18 13:11 Freq: Status: Active Protocol: Document 08/24/18 13:11 [facility] (Rec: 08/24/18 13:53 [facility] [id number]) Cognitive Factors Limiting Selfcare Function Cognitive Ability Level of Alertness Alert Patient Orientation Name Place Situation Attention Span Ability Capable of Focused Attention Capable of Sustained Attention Ability to Follow Commands Able to Follow Multi-Step Commands Memory Description Short Term Impaired Safety Awareness Decreased Recall of Precautions Decreased Ability to Apply Precautions Underestimates Need for Assistance Problem Solving Ability Unable to Identify Errors Needs Assist to Identify Solutions Cognitive Comments Cognitive Assessment Comments Pt unable to recall all hip precautions and needing cues to incorporate during needs. OT- Vision and Hearing OT- Hearing Assessment OT- Hearing Assessment WFL M7 OT- IP Mobility and Balance Start: 08/24/18 13:11 Freq: Status: Active Protocol: Document 08/24/18 13:11 [facility] (Rec: 08/24/18 13:53 [facility] [id number]) OT-Transfer Assessment Sit to and From Stand Sit to and from Stand Contact Guard Assistance Transfers Transfer Ability Standby Assistance Contact Guard Assistance Technique Transfer Destination Bed Toilet Transfer Technique Stand Step Pivot Devices Transfer Assistive Devices Gait Belt Front Wheeled Walker Platform Walker Comments Mobility Comments Pt does better with platform walker and at times just SBA to the toilet. Pt use of FWW without platform getting out and needing CGA for balance. Pt states has a bad right wrist has trouble to use her right hand. Pt states ordered a rolling office chair to sit in, suggested best to sit in her recliner and have extra cushion to increase the height. Pt also states has a step to get to her bedroom but thinking about just sleeping in the recliner initially. Needs a step to get into the car. OT- Balance Assessment Sitting Balance and Reactions Static Sitting Balance Ability Normal Dynamic Sitting Balance Ability Normal Standing Balance and Reactions Static Standing Balance Ability Fair M8 OT- IP Objective Assessments Start: 08/24/18 13:11 Freq: Status: Active Protocol: Document 08/24/18 13:11 [facility] (Rec: 08/24/18 13:53 [facility] [id number]) OT Gross Range of Motion Upper Extremity Range of Motion Assessment Within Functional Limits OT Strength Comments Strength Comments Due to pain in right wrist not able use FWW as well as platform walker. OT-Muscle Tone Assessment Muscle Tone WNL Yes M9 OT- IP Assessment and Plan Start: 08/24/18 13:11 Freq: Status: Active Protocol: Document 08/24/18 13:11 [facility] (Rec: 08/24/18 13:53 [facility] [id number]) OT Summary Assessment and Plan Potential Rehabilitation Potential Good Analytic Complexity at Evaluation Low Summary OT Impairments Balance Functional Cognition Functional Mobility Dressing Toileting Bathing Toilet Transfers Shower Transfers Progress Towards Goals Progressing Toward Goals Assessment Summary Pt low complexity and main barrier is home environment, as pt 's in the process on bulding steps to get into the cabin, some of her doorways are too narrow for FWW, decreased activity tolerance, strength, balance, and ability to recall and incorporate hip precautions. Pt would benefit from skilled rehab versus home with assist pending caregiver training and progress. Goals Grooming Goal Independent Dressing Goal Independent Toileting Goal Standby Assistance Bathing Goal Minimal Assistance Toilet Transfer Goal Independent Shower Transfer Goal Standby Assistance Patient/Caregiver Education Goal Demonstrate Post-Op Precautions Caregiver Independent Assisting Patient Days to Meet Goals 5 Frequency of Treatment Frequency Of Treatment Once a Day Treatment Plan OT Treatment Plan ADL Training Functional Cognition Training Functional Mobility Patient/Family Education Discharge Planning Other Treatment Recommendations and Next shower, caregiver training Treatment Focus Discharge Recommendations OT Discharge Recommendations SNF Rehab Home Equipment Needs BSC, project developer issued
--- NOTE | 2018-08-24 15:07 | OT.IP.EVAL ---
Current Diagnoses Unilateral primary osteoarthritis, right hip (08/22/18) Surgery Performed Operation Date: 08/22/18 13:45 Actual Procedures p Total Hip Arthroplasty(Right) - Don Landrum MD Past Medical History (Last Updated 08/15/18 @ 09:29 by Blanca Booker, RN) Anxiety (Acute) Arthritis (Acute) Bilateral hip pain (Acute) Cervical cancer (Acute) Eczema (Acute) Fibroids (Acute) Fibromyalgia (Acute) HTN (hypertension) (Acute) Hypothyroidism (Acute) IBS (irritable bowel syndrome) (Acute) Kidney stone (Acute ~1991) Left wrist fracture (Acute 05/10/18) Lower back pain (Acute) Osteoarthritis (Acute) Ovarian cyst, left (Acute) Pancreatitis (Acute) Pneumonia (Acute) Right wrist fracture (Acute ~05/2015) Sleep apnea (Acute) Surgical History (Last Updated 08/15/18 @ 12:04 by Blanca Booker RN) History of conization of cervix (Acute ~1991) Hx of brain surgery (Acute 01/03/18) Occupational Therapy Inpatient Evaluation/Re-Eval M1 PT/OT-IP Prior Functional Status Start: 08/23/18 08:31 Freq: NEEDED Status: Active Protocol: Document 08/23/18 11:15 [facility] (Rec: 08/23/18 14:47 [facility] [id number]) Medical Review Prior Functional Status Medical History Reviewed Yes Diet/Fluid Consistency Regular Communication no known deficits Mobility and Gait uses a SPC or FWW for all mobility, denies falls Activities of Daily Living and IADL's doesn't get help for self-care Social History Household Members spouse Living Arrangements House Number of Floors (Floors) One Floor Number of Stairs To Enter/Railing? 1STE Home Equipment Front Wheel Walker Straight Cane Additional Social History Comment lives in [place], limited services available M1 PT/OT-IP Prior Functional Status Start: 08/24/18 13:11 Freq: NEEDED Status: Active Protocol: Document 08/24/18 13:11 [facility] (Rec: 08/24/18 13:53 [facility] [id number]) Medical Review Prior Functional Status Medical History Reviewed Yes Diet/Fluid Consistency Regular Communication no known deficits Mobility and Gait uses a SPC or FWW for all mobility, denies falls Activities of Daily Living and IADL's doesn't get help for self-care Social History Household Members spouse Living Arrangements House Number of Floors (Floors) One Floor Number of Stairs To Enter/Railing? At this time pt's trying to build steps to get into the cabin. Planning to have two steps , deck and another 3 steps. Per pt 3 steps had board on left side to use or lean to . Home Equipment Front Wheel Walker Straight Cane Raised Toilet Seat Without Armrests Tub Transfer [employer] Developer Held Shower Long Handled Sponge Sock Aid Additional Social History Comment lives in [place], limited services available. Pt lives in a cabin and FWW able to get through front door and bedroom door, but not the bathroom door. M2 OT-IP Current Condition Start: 08/24/18 13:11 Freq: Status: Active Protocol: Document 08/24/18 13:11 [facility] (Rec: 08/24/18 13:53 [facility] [email or web address]) Occupational Therapy Current Condition Current Condition Evaluation Date 08/24/18 Treatment Diagnosis s/p R [facility] Diagnosis Onset Date 08/22/18 Post Operative Precautions Posterior Hip Precautions No Hip Flexion > 90 degrees No Hip Internal Rotation No Hip Adduction Weight Bearing Status Weight Bearing Status Weight Bear as Tolerated M3 OT- IP Subjective and Pain Start: 08/24/18 13:11 Freq: Status: Active Protocol: Document 08/24/18 13:11 [facility] (Rec: 08/24/18 13:53 [facility] [id number]) OT- Subjective Occupational Therapy Visit Type Type Initial Evaluation Visit Start Time 10:15 Visit Stop Time 11:25 Total Visit Minutes 70 Occupational Therapy Visit Comments Patient Comments Pt has some concerns about going home, but wants to go home. OT Pain Assessment Pain When Pain Assessed At Rest Pain Present Pain Present Denied Pain M4 OT- IP ADL's Start: 08/24/18 13:11 Freq: Status: Active Protocol: Document 08/24/18 13:11 [facility] (Rec: 08/24/18 13:53 [facility] [id number]) OT [id number] General Evaluation Self-Feeding Ability Independent OT ADL-Grooming Comments OT Grooming Comments Pt states already did grooming in AM. OT ADL-Dressing General Eval Lower Body Dressing Ability Maximum Assistance Areas Needing Assistance Socks Comments OT Dressing Comments Educated pt on use of wheel inspector to assist to mansi/doff socks OT ADL-Toileting General Evaluation Toileting Ability Standby Assistance Comments OT Toileting Comments VC to incorporate hip precautions as pt tends to lean forwards too far. Better to stand and wipe. OT ADL-Bathing Comments OT Bathing Comments Pt not wanting to shower at this time. M5 OT- IP IADL's Start: 08/24/18 13:11 Freq: Status: Active Protocol: Document 08/24/18 13:11 [facility] (Rec: 08/24/18 13:53 [facility] [id number]) OT-Instrumental Activities of Daily Living Home Safety Awareness Ability to Problem Solve Emergency Able to Problem Solve Situations Meal Preparation Meal Preparation Comments Pt states uses a stool in the kitchen to sit at times. Car Salter Car Salter Caregiver Provides Assist M6 OT- IP Functional Cognition Start: 08/24/18 13:11 Freq: Status: Active Protocol: Document 08/24/18 13:11 [facility] (Rec: 08/24/18 13:53 [facility] [id number]) Cognitive Factors Limiting Selfcare Function Cognitive Ability Level of Alertness Alert Patient Orientation Name Place Situation Attention Span Ability Capable of Focused Attention Capable of Sustained Attention Ability to Follow Commands Able to Follow Multi-Step Commands Memory Description Short Term Impaired Safety Awareness Decreased Recall of Precautions Decreased Ability to Apply Precautions Underestimates Need for Assistance Problem Solving Ability Unable to Identify Errors Needs Assist to Identify Solutions Cognitive Comments Cognitive Assessment Comments Pt unable to recall all hip precautions and needing cues to incorporate during needs. OT- Vision and Hearing OT- Hearing Assessment OT- Hearing Assessment WFL M7 OT- IP Mobility and Balance Start: 08/24/18 13:11 Freq: Status: Active Protocol: Document 08/24/18 13:11 [facility] (Rec: 08/24/18 13:53 [facility] [id number]) OT-Transfer Assessment Sit to and From Stand Sit to and from Stand Contact Guard Assistance Transfers Transfer Ability Standby Assistance Contact Guard Assistance Technique Transfer Destination Bed Toilet Transfer Technique Stand Step Pivot Devices Transfer Assistive Devices Gait Belt Front Wheeled Walker Platform Walker Comments Mobility Comments Pt does better with platform walker and at times just SBA to the toilet. Pt use of FWW without platform getting out and needing CGA for balance. Pt states has a bad right wrist has trouble to use her right hand. OT- Balance Assessment Sitting Balance and Reactions Static Sitting Balance Ability Normal Dynamic Sitting Balance Ability Normal Standing Balance and Reactions Static Standing Balance Ability Fair M8 OT- IP Objective Assessments Start: 08/24/18 13:11 Freq: Status: Active Protocol: Document 08/24/18 13:11 [facility] (Rec: 08/24/18 13:53 [facility] [id number]) OT Gross Range of Motion Upper Extremity Range of Motion Assessment Within Functional Limits OT Strength Comments Strength Comments Due to pain in right wrist not able use FWW as well as platform walker. OT-Muscle Tone Assessment Muscle Tone WNL Yes M9 OT- IP Assessment and Plan Start: 08/24/18 13:11 Freq: Status: Active Protocol: Document 08/24/18 13:11 [facility] (Rec: 08/24/18 13:53 [facility] [id number]) OT Summary Assessment and Plan Potential Rehabilitation Potential Good Analytic Complexity at Evaluation Low Summary OT Impairments Balance Functional Cognition Functional Mobility Dressing Toileting Bathing Toilet Transfers Shower Transfers Progress Towards Goals Progressing Toward Goals Assessment Summary Pt low complexity and main barrier is home environment, as pt 's in the process on building steps to get into the cabin, some of her doorways are too narrow for FWW, decreased activity tolerance, strength, balance, and ability to recall and incorporate hip precautions. Pt would benefit from skilled rehab At this time pt is a very high fall risk and would benefit from more training, education, and practice especially for all mobility needs. Goals Grooming Goal Independent Dressing Goal Independent Toileting Goal Standby Assistance Bathing Goal Minimal Assistance Toilet Transfer Goal Independent Shower Transfer Goal Standby Assistance Patient/Caregiver Education Goal Demonstrate Post-Op Precautions Caregiver Independent Assisting Patient Days to Meet Goals 5 Frequency of Treatment Frequency Of Treatment Once a Day Treatment Plan OT Treatment Plan ADL Training Functional Cognition Training Functional Mobility Patient/Family Education Discharge Planning Other Treatment Recommendations and Next shower, caregiver training Treatment Focus Discharge Recommendations OT Discharge Recommendations SNF Rehab Home Equipment Needs BSC, wheel inspector issued
--- NOTE | 2018-08-24 15:08 | PT.IPTN ---
Current Diagnoses Unilateral primary osteoarthritis, right hip (08/22/18) Surgery Performed Operation Date: 08/22/18 13:45 Actual Procedures p Total Hip Arthroplasty(Right) - Don Landrum MD Physical Therapy Treatment Note M2 PT-IP Current Condition Start: 08/23/18 08:31 Freq: NEEDED Status: Active Protocol: Document 08/23/18 11:15 RS (Rec: 08/23/18 14:47 RS [id number]) Physical Therapy Current Condition Current Condition Evaluation Date 08/23/18 Treatment Diagnosis R posterior hip arthroplasty Onset Date 08/22/18 Precautions Posterior Hip Precautions No Hip Flexion > 90 degrees No Hip Internal Rotation No Hip Adduction Weight Bearing Status Weight Bearing Status Weight Bear as Tolerated M3 PT-IP Subjective Start: 08/23/18 08:31 Freq: NEEDED Status: Active Protocol: Document 08/24/18 14:52 SA (Rec: 08/24/18 15:08 SA [id number]) Subjective Physical Therapy Visit Type Type Treatment Note Visit Start Time 14:00 Visit Stop Time 14:32 Total Visit Minutes 32 Number of RETAIL ACCOUNT EXECUTIVE Visits 2 Physical Therapy Visit Comments Patient Comments PT agreeable to trial stairs. Patient Goals To go home but states she may want to go to SNF. Therapy Pain Assessment Pain When Pain Assessed During Mobility Pain Present Pain Present Pain Reported Location Right Hip Intensity 4 Pain Behaviors Wincing Pain Management Techniques Apply Cold Elevation Modification of Treatment Re-positioning Timing of Activity with Medications M4 PT-IP Mobility and Gait Start: 08/23/18 08:31 Freq: NEEDED Status: Active Protocol: Document 08/24/18 14:52 SA (Rec: 08/24/18 15:08 SA [id number]) PT-Bed Mobility Assessment Sit to Supine Sit to Supine Minimal Assistance Scooting Scooting to Edge of Bed Contact Guard Assistance Scooting Up and Down in Bed Contact Guard Assistance PT-Transfer Assessment Sit to and From Stand Sit to and from Stand Contact Guard Assistance Minimal Assistance 1 Person Assistance Equipment Transfer Assistive Device Gait Belt Front Wheeled Walker Orthotic/Prosthetic Devices or Brace: No Transfers Transfer Destination Bed Chair Transfer Ability Level of Assist Contact Guard Assistance 1 Person Assistance Comments Mobility Comments Used FWW this afternoon to challange pt to WB less thorugh UEs and assess tolerance. pt CGA with transfers and Min A with bed mobility, still unable to clear LEs over EOB with sit to supine. Gait Assessment Gait Gait Assistance Required: Contact Guard Assist Minimum Assistance 1 Person Assist Distance (Feet) 75 Able to Maintain Weight Bearing Status Yes During Gait Assistive Devices Assistive Device Front Wheeled Walker Orthotic/Prosthetic Devices or Brace: No Gait Deviations General Gait Pattern Antalgic Decreased Stride Length Decreased Feet Clearance Factors Limiting Gait Function Factors Limiting Gait Function Decreased Activity Tolerance Decreased Strength Pain Poor Safety Awareness Comments Gait Comments Pt with increases difficulty progressing RLE and WBing fully on LLE. States LLE is weak as well. Able to walk 40 + 40 feet with seated rest break betweeen and excessive dependence on UEs for support. Stair Climbing Assessment Evaluation Level of Assist On Stairs Minimal Assistance Devices Stair Climbing Assistive Devices Left Railing Right Railing Technique/Endurance Stair Climbing Direction Ascend and Descend Stair Climbing Technique Step to Step Number of Steps Climbed 3 Query Text: Stair Climbing Set # Repetitions (reps) 1 Comments Stair Climbing Comments Pt demonstrated difficulty with stair training as she relies so heavily on UEs for support, pt had both forearms on B rails and leaning forward in order to progress BLE onto stair. Pt with weak LLE and R VA. Knee buckle x 1 with Min A for recovery. Would not recommend stairs at home with without extensive lawn caretaker training and significant increase in LE strength. PT also L wrist fx from 3months ago that limits her UE use. M5 PT-IP Objective Assessments Start: 08/23/18 08:31 Freq: NEEDED Status: Active Protocol: Document 08/23/18 11:15 RS (Rec: 08/23/18 14:47 RS [id number]) Orientation Orientation/Cognition Level of Alertness Alert Orientation Name Age Birthday Month Date Year Day of Week Place Situation Language Function Ability No Deficits Noted Safety Awareness Understands Safety Issues Memory Description No Deficits Noted Gross Range of Motion Upper Extremity ROM Assessment Within Functional Limits Lower Extremity ROM Impairments RLE limited by posterior hip precautions Strength Comments Strength Comments BUE not formally assessed but presents with at least antigravity LLE grossly 4-/5 RLE grossly 2+/5 Sensation Assessment Sensation Gross Sensation Right LE Impaired Left LE Impaired Light Touch Impaired Proprioception (Position) Impaired Sensation Description Numbness Pins & [place] M6 PT-IP Treatment Start: 08/23/18 08:31 Freq: NEEDED Status: Active Protocol: Document 08/24/18 14:52 SA (Rec: 08/24/18 15:08 [id number]) Physical Therapy Treatment Exercises Exercises Ankle Pumps Gluteal Sets Quad Sets Heel Slides Supine Hip Abduction Education Education Provided Precautions Weight Bearing Status Post-Op Packet Safety M7 PT-IP Assessment and Plan Start: 08/23/18 08:31 Freq: NEEDED Status: Active Protocol: Document 08/24/18 14:52 (Rec: 08/24/18 15:08 [id number]) PT Summary Assessment and Plan Summary Assessment Summary Pt needs reminders for hip precautions, BLE weakness that limits gait and stair training at this time, also weak LUE d/t wrist injury. Pt had difficulty with stair training. Would recommend SNF or extensive caregiver training with prior to d/c home. Pt also unable to D /F R foot with out verbal cues to do so and this puts her at high risk for falls, pt appears to have some neurological sx that are slowing down her functional mobility progress. Frequency of Treatment Frequency Of Treatment Twice a Day Treatment Plan Physical Therapy Treatment Plan Bed Mobility Training Transfer Training Gait Training Therapeutic Exercise Balance Retraining Post Op Education Discharge Planning Hot or Cold Pack Neuromuscular Re-ed Coordination Retraining Manual Therapy Recommendations To Nursing Amount of Assist Needed 1 Person Assist Discharge Recommendations PT Discharge Recommendations Home with 26/10 Assist SNF Rehab [id number]
[2018-08-24 15:20] VITALS: BP 108/68; PULSE 90; RESP 16; TEMP 37.2; O2SAT 97
[2018-08-24] MEDS: ENOXAPARIN 40 MG/0.4 ML SYRINGE SUBCUT (20:46)
[2018-08-25 01:25] VITALS: BP 126/72; PULSE 95; RESP 16; TEMP 37; O2SAT 95
[2018-08-25 04:34] VITALS: BP 138/75; PULSE 91; RESP 16; TEMP 36.7; O2SAT 96
[2018-08-25 08:05] VITALS: BP 133/94; PULSE 92; RESP 18; TEMP 36.8; O2SAT 96
[2018-08-25] MEDS: HYDROCODONE/ACET 5/325 TABLET 1 TAB PO ×2 (08:51→12:48)
[2018-08-25] MEDS: DOCUSATE 100 MG CAPSULE PO (08:53)
[2018-08-25] MEDS: ACETAMINOPHEN 325 MG TABLET 975 MG PO ×2 (08:54→14:36)
[2018-08-25] MEDS: MAGNESIUM HYDROXIDE 30 ML UDC PO (09:07)
--- NOTE | 2018-08-25 10:25 | CM.DPC ---
Addendum entered by Analia Reina LPN 08/26/18 09:23: Spoke now by phone with [facility]. She reviewed notes of yesterday from [facility], says that the [employer] [facility] denied the SNF request and pt was called at the end of the day with this information. Pt will be seeing Dr. Elayne Mccracken and ortho team in clinic per routine followup for the planned surgeries. Addendum entered by Analia Reina LPN 08/26/18 09:09: Checked in this morning and noted that pt was not here. Plan as of Team Rounds yesterday morning continued to be strong caution by therapy team that pt was not able to go to home environment. Noted then the OT/PT notes, put in at 1530, noting patient's rapid improvement and the d/c to home with spouse support. Will update [facility] now. Original Note: DCP: continued: received a call back from Rosie/[facility]. She reports that [employer] is back on the case today, has the snf auth request and it is currently in review as per their process for planned orthopedic surgeries. No note yet from rounding ortho team but am hoping to discuss case with whomever is assigned. Case also discussed in Team Rounds. PT and OT will continue to work with pt.
--- NOTE | 2018-08-25 11:09 | PM.PNPO.1 ---
Subjective Date Patient Seen: 08/25/18 Time Patient Seen: 11:09 Interval history: Patient's pain has been well controlled. They have been ambulating with physical therapy. She has been very slow to mobilize. She states she is feeling much better and stronger today. She is hoping to be able to go home tonight. Exam Vital Signs (past 8 hours): - 08/25/18 04:34 08/25/18 08:05 Temperature 98.0 F 98.3 F Pulse Rate 91 H 92 H Respiratory Rate 16 18 Blood Pressure 138/75 133/94 H Pulse Oximetry 96 96 Oxygen Delivery Method Room Air Oxygen Flow Rate 0 Narrative Exam Narrative: Patient is sitting up in bed in no acute distress. She is alert and oriented x3. Dressing on right hip is CDI. Calves are soft, compressible, nontender bilaterally. Pulses are symmetrical. She is able to actively dorsiflex and plantar flex. Lovenox for DVT prophylaxis. Objective Labs Result Diagrams: 08/23/18 05:23 Assessment & Plan Post-op (1) S/P total hip arthroplasty: Postoperative Procedures Operation Date: 08/22/18 13:45 Actual Procedures Side Surgeon p Total Hip Arthroplasty Right Don Landrum MD Patient will continue to mobilize with physical therapy. Follow posterior hip precautions. Continue Lovenox for VTE prophylaxis for a total of 10 days. After that she will start ASA 81 mg b.i.d.. She was provided prescriptions for Lovenox. She will likely discharge home today or tomorrow. Quality VTE Deep Vein Thrombosis/Pulmonary Embolism Present on Admission: No
--- NOTE | 2018-08-25 11:15 | P.PN_ITS ---
Subjective Date Patient Seen: 08/25/18 Time Patient Seen: 11:09 Interval history: Patient's pain has been well controlled. They have been ambulating with physical therapy. She has been very slow to mobilize. She states she is feeling much better and stronger today. She is hoping to be able to go home tonight. Exam Vital Signs (past 8 hours): - 08/25/18 04:34 08/25/18 08:05 Temperature 98.0 F 98.3 F Pulse Rate 91 H 92 H Respiratory Rate 16 18 Blood Pressure 138/75 133/94 H Pulse Oximetry 96 96 Oxygen Delivery Method Room Air Oxygen Flow Rate 0 Narrative Exam Narrative: Patient is sitting up in bed in no acute distress. She is alert and oriented x3. Dressing on right hip is CDI. Calves are soft, compressible, nontender bilaterally. Pulses are symmetrical. She is able to actively do rsiflex and plantar flex. Lovenox for DVT prophylaxis. Objective Labs Result Diagrams: 08/23/18 05:23 Assessment & Plan Post-op (1) S/P total hip arthroplasty: Postoperative Procedures Operation Date: 08/22/18 13:45 Actual Procedures Side Surgeon p Total Hip Arthroplasty Right Don Landrum MD Patient will continue to mobilize with physical therapy. Follow posterior hip p recautions. Continue Lovenox for VTE prophylaxis for a total of 10 days. After that she will start ASA 81 mg b.i.d.. She was provided prescriptions for Lovenox. She will likely discharge home today or tomorrow. Quality VTE Deep Vein Thrombosis/Pulmonary Embolism Present on Admission: No
--- NOTE | 2018-08-25 11:32 | PT.IPTN ---
Current Diagnoses Unilateral primary osteoarthritis, right hip (08/22/18) Presence of unspecified artificial hip joint (08/22/18) Surgery Performed Operation Date: 08/22/18 13:45 Actual Procedures p Total Hip Arthroplasty(Right) - Don Landrum MD Physical Therapy Treatment Note M2 PT-IP Current Condition Start: 08/23/18 08:31 Freq: NEEDED Status: Active Protocol: Document 08/23/18 11:15 RS (Rec: 08/23/18 14:47 RS [id number]) Physical Therapy Current Condition Current Condition Evaluation Date 08/23/18 Treatment Diagnosis R posterior hip arthroplasty Onset Date 08/22/18 Precautions Posterior Hip Precautions No Hip Flexion > 90 degrees No Hip Internal Rotation No Hip Adduction Weight Bearing Status Weight Bearing Status Weight Bear as Tolerated M3 PT-IP Subjective Start: 08/23/18 08:31 Freq: NEEDED Status: Active Protocol: Document 08/25/18 11:25 SA (Rec: 08/25/18 11:32 SA [email or web address]) Subjective Physical Therapy Visit Type Type Treatment Note Visit Start Time 09:57 Visit Stop Time 10:30 Total Visit Minutes 33 Number of BATTER SCALER Visits 3 Physical Therapy Visit Comments Patient Comments Pt feeling better this AM and ready to walk. Patient Goals to go home with . Therapy Pain Assessment Pain When Pain Assessed During Mobility Pain Present Pain Present Pain Reported Location Right Hip Intensity 2 Pain Management Techniques Apply Cold Elevation Modification of Treatment Re-positioning Timing of Activity with Medications M4 PT-IP Mobility and Gait Start: 08/23/18 08:31 Freq: NEEDED Status: Active Protocol: Document 08/25/18 11:25 SA (Rec: 08/25/18 11:32 [id number]) PT-Bed Mobility Assessment Rolling Type of Rolling Roll to Left Level of Assist Standby Assistance Supine to Sit Supine to Sit Standby Assistance Sit to Supine Sit to Supine Standby Assistance Scooting Scooting to Edge of Bed Standby Assistance Scooting Up and Down in Bed Standby Assistance PT-Transfer Assessment Sit to and From Stand Sit to and from Stand Contact Guard Assistance 1 Person Assistance Equipment Transfer Assistive Device Gait Belt Front Wheeled Walker Orthotic/Prosthetic Devices or Brace: No Transfers Transfer Destination Bed Toilet Transfer Ability Level of Assist Contact Guard Assistance 1 Person Assistance Comments Mobility Comments Pt with improving bed mobility at SBA and abl eto clear LEs over EOB. Safe transfers with FWW and CGA. Gait Assessment Gait Gait Assistance Required: Contact Guard Assist Distance (Feet) 100 Able to Maintain Weight Bearing Status Yes During Gait Assistive Devices Assistive Device Front Wheeled Walker Orthotic/Prosthetic Devices or Brace: No Gait Deviations General Gait Pattern Antalgic Decreased Stride Length Decreased Feet Clearance Factors Limiting Gait Function Factors Limiting Gait Function Decreased Activity Tolerance Decreased Strength Pain Poor Safety Awareness Comments Gait Comments Pt with improved gait this AM, better RLE foot clearance and no Knee buckling. Short walks in room and another longer walk in garcia for a total of 100 feet. Stair Climbing Assessment Evaluation Level of Assist On Stairs Contact Guard Assistance Devices Stair Climbing Assistive Devices Left Railing Right Railing Technique/Endurance Stair Climbing Direction Ascend and Descend Stair Climbing Technique Step to Step Number of Steps Climbed 3 Query Text: Stair Climbing Set # Repetitions (reps) 2 Comments Stair Climbing Comments Pt able to completed 2 sets of 3 steps with B rails and CGA. Decreased reliance on UEs today and no knee buckling. M5 PT-IP Objective Assessments Start: 08/23/18 08:31 Freq: NEEDED Status: Active Protocol: Document 08/23/18 11:15 RS (Rec: 08/23/18 14:47 RS [id number]) Orientation Orientation/Cognition Level of Alertness Alert Orientation Name Age Birthday Month Date Year Day of Week Place Situation Language Function Ability No Deficits Noted Safety Awareness Understands Safety Issues Memory Description No Deficits Noted Gross Range of Motion Upper Extremity ROM Assessment Within Functional Limits Lower Extremity ROM Impairments RLE limited by posterior hip precautions Strength Comments Strength Comments BUE not formally assessed but presents with at least antigravity LLE grossly 4-/5 RLE grossly 2+/5 Sensation Assessment Sensation Gross Sensation Right LE Impaired Left LE Impaired Light Touch Impaired Proprioception (Position) Impaired Sensation Description Numbness Pins & [place] M6 PT-IP Treatment Start: 08/23/18 08:31 Freq: NEEDED Status: Active Protocol: Document 08/25/18 11:25 SA (Rec: 08/25/18 11:32 SA [id number]) Physical Therapy Treatment Exercises Exercises Ankle Pumps Gluteal Sets Quad Sets Heel Slides Supine Hip Abduction Education Education Provided Precautions Weight Bearing Status Post-Op Packet Safety M7 PT-IP Assessment and Plan Start: 08/23/18 08:31 Freq: NEEDED Status: Active Protocol: Document 08/25/18 11:25 (Rec: 08/25/18 11:32 [id number]) PT Summary Assessment and Plan Summary Assessment Summary Plan to perform caregiver training this afternoon with prior to d/c. Pt better with functional mobility today and improving LE stability with WBing tasks. Frequency of Treatment Frequency Of Treatment Twice a Day Treatment Plan Physical Therapy Treatment Plan Bed Mobility Training Transfer Training Gait Training Therapeutic Exercise Balance Retraining Post Op Education Discharge Planning Hot or Cold Pack Neuromuscular Re-ed Coordination Retraining Manual Therapy Recommendations To Nursing Amount of Assist Needed 1 Person Assist Discharge Recommendations PT Discharge Recommendations Home with 26/10 Assist Equipment Needed for Home Before Rail in place to enter home. Discharge
[2018-08-25 11:35] VITALS: BP 140/70; PULSE 85; RESP 18; TEMP 36.9; O2SAT 95
[2018-08-25] MEDS: hydrOXYzine pamoate 25 MG CAPSULE PO (12:48)
--- NOTE | 2018-08-25 15:18 | PT.IPTN ---
Current Diagnoses Unilateral primary osteoarthritis, right hip (08/22/18) Presence of unspecified artificial hip joint (08/22/18) Surgery Performed Operation Date: 08/22/18 13:45 Actual Procedures p Total Hip Arthroplasty(Right) - Don Landrum MD Physical Therapy Treatment Note M2 PT-IP Current Condition Start: 08/23/18 08:31 Freq: NEEDED Status: Active Protocol: Document 08/23/18 11:15 RS (Rec: 08/23/18 14:47 RS [id number]) Physical Therapy Current Condition Current Condition Evaluation Date 08/23/18 Treatment Diagnosis R posterior hip arthroplasty Onset Date 08/22/18 Precautions Posterior Hip Precautions No Hip Flexion > 90 degrees No Hip Internal Rotation No Hip Adduction Weight Bearing Status Weight Bearing Status Weight Bear as Tolerated M3 PT-IP Subjective Start: 08/23/18 08:31 Freq: NEEDED Status: Active Protocol: Document 08/25/18 14:52 SA (Rec: 08/25/18 15:18 SA [id number]) Subjective Physical Therapy Visit Type Type Treatment Note Visit Start Time 14:00 Visit Stop Time 14:27 Total Visit Minutes 27 Number of FLAME CHANNELER Visits 4 Physical Therapy Visit Comments Patient Comments Pt feeling good, had BM and Ambrose present for caregiver training. Patient Goals to go home with . Therapy Pain Assessment Pain When Pain Assessed During Mobility Pain Present Pain Present Pain Reported Location Right Hip Intensity 2 Pain Management Techniques Apply Cold Elevation Modification of Treatment Re-positioning Timing of Activity with Medications M4 PT-IP Mobility and Gait Start: 08/23/18 08:31 Freq: NEEDED Status: Active Protocol: Document 08/25/18 14:52 SA (Rec: 08/25/18 15:18 SA [id number]) PT-Bed Mobility Assessment Rolling Type of Rolling Roll to Left Level of Assist Standby Assistance Supine to Sit Supine to Sit Standby Assistance Sit to Supine Sit to Supine Standby Assistance Scooting Scooting to Edge of Bed Standby Assistance Scooting Up and Down in Bed Standby Assistance PT-Transfer Assessment Sit to and From Stand Sit to and from Stand Standby Assistance Contact Guard Assistance 1 Person Assistance Equipment Transfer Assistive Device Gait Belt Front Wheeled Walker Orthotic/Prosthetic Devices or Brace: No Transfers Transfer Destination Bed Toilet Transfer Ability Level of Assist Standby Assistance Contact Guard Assistance Comments Mobility Comments Pt SBA with bed mobility and SBA-CGA with transfers and FWW . Increased Wbing through RLE. Gait Assessment Gait Gait Assistance Required: Contact Guard Assist Distance (Feet) 125 Able to Maintain Weight Bearing Status Yes During Gait Assistive Devices Assistive Device Gait Belt Front Wheeled Walker Orthotic/Prosthetic Devices or Brace: No Gait Deviations General Gait Pattern Antalgic Decreased Stride Length Decreased Feet Clearance Factors Limiting Gait Function Factors Limiting Gait Function Decreased Activity Tolerance Decreased Strength Comments Gait Comments Improving gait and RLE WBing, decreased dependence on UEs and increasing distance tolerated. Stair Climbing Assessment Evaluation Level of Assist On Stairs Contact Guard Assistance Devices Stair Climbing Assistive Devices Straight Cane Right Railing Technique/Endurance Stair Climbing Direction Ascend and Descend Stair Climbing Technique Step to Step Number of Steps Climbed 3 Query Text: Stair Climbing Set # Repetitions (reps) 2 Comments Stair Climbing Comments Pt now has single rail at home R ascending to get into cabin , was able to go up/down 3 steps (2x) with single rail and SPC in LUE with CGA, safely. Caregiver training conducted with Ambrose who feels confident with task. M5 PT-IP Objective Assessments Start: 08/23/18 08:31 Freq: NEEDED Status: Active Protocol: Document 08/23/18 11:15 RS (Rec: 08/23/18 14:47 RS [id number]) Orientation Orientation/Cognition Level of Alertness Alert Orientation Name Age Birthday Month Date Year Day of Week Place Situation Language Function Ability No Deficits Noted Safety Awareness Understands Safety Issues Memory Description No Deficits Noted Gross Range of Motion Upper Extremity ROM Assessment Within Functional Limits Lower Extremity ROM Impairments RLE limited by posterior hip precautions Strength Comments Strength Comments BUE not formally assessed but presents with at least antigravity LLE grossly 4-/5 RLE grossly 2+/5 Sensation Assessment Sensation Gross Sensation Right LE Impaired Left LE Impaired Light Touch Impaired Proprioception (Position) Impaired Sensation Description Numbness Pins & [place] M6 PT-IP Treatment Start: 08/23/18 08:31 Freq: NEEDED Status: Active Protocol: Document 08/25/18 14:52 SA (Rec: 08/25/18 15:18 SA [id number]) Physical Therapy Treatment Exercises Exercises Ankle Pumps Gluteal Sets Quad Sets Heel Slides Supine Hip Abduction Education Education Provided Precautions Weight Bearing Status Post-Op Packet Safety M7 PT-IP Assessment and Plan Start: 08/23/18 08:31 Freq: NEEDED Status: Active Protocol: Document 08/25/18 14:52 SA (Rec: 08/25/18 15:18 SA [id number]) PT Summary Assessment and Plan Summary Assessment Summary Pt improved greatly today with gait, transfers and stair management. Caregiver training completed and pt ready for d/c home. Has all needed equipment. Frequency of Treatment Frequency Of Treatment Twice a Day Treatment Plan Physical Therapy Treatment Plan Bed Mobility Training Transfer Training Gait Training Therapeutic Exercise Balance Retraining Post Op Education Discharge Planning Hot or Cold Pack Neuromuscular Re-ed Coordination Retraining Manual Therapy Recommendations To Nursing Amount of Assist Needed 1 Person Assist Discharge Recommendations PT Discharge Recommendations Home with 26/10 Assist Equipment Needed for Home Before Rail in place to enter home. Discharge
--- NOTE | 2018-08-25 15:25 | OT.IP.TRT ---
Current Diagnoses Unilateral primary osteoarthritis, right hip (08/22/18) Presence of unspecified artificial hip joint (08/22/18) Surgery Performed Operation Date: 08/22/18 13:45 Actual Procedures p Total Hip Arthroplasty(Right) - Don Landrum MD Occupational Therapy Treatment Note M2 OT-IP Current Condition Start: 08/24/18 13:11 Freq: Status: Active Protocol: Document 08/24/18 13:11 [facility] (Rec: 08/24/18 13:53 [facility] [id number]) Occupational Therapy Current Condition Current Condition Evaluation Date 08/24/18 Treatment Diagnosis s/p R [facility] Diagnosis Onset Date 08/22/18 Post Operative Precautions Posterior Hip Precautions No Hip Flexion > 90 degrees No Hip Internal Rotation No Hip Adduction Weight Bearing Status Weight Bearing Status Weight Bear as Tolerated M3 OT- IP Subjective and Pain Start: 08/24/18 13:11 Freq: Status: Active Protocol: Document 08/25/18 15:17 [facility] (Rec: 08/25/18 15:25 [facility] [id number]) OT- Subjective Occupational Therapy Visit Type Type Treatment Note Visit Start Time 13:05 Visit Stop Time 13:20 Total Visit Minutes 15 Occupational Therapy Visit Comments Patient Comments Pt wanting to use the bathroom . OT Pain Assessment Pain When Pain Assessed At Rest Pain Present Pain Present Denied Pain M4 OT- IP ADL's Start: 08/24/18 13:11 Freq: Status: Active Protocol: Document 08/25/18 15:17 [facility] (Rec: 08/25/18 15:25 [facility] [id number]) OT ADL-Toileting General Evaluation Toileting Ability Standby Assistance Devices Toileting Assistive Devices Grab Bars OT ADL-Bathing Comments OT Bathing Comments Pt not wanting to shower yet , waiting to have a bowel movement. Due to not wanting to be too tired, to have aid assist for shower as pt planning on going home later. M5 OT- IP IADL's Start: 08/24/18 13:11 Freq: Status: Active Protocol: Document 08/24/18 13:11 [facility] (Rec: 08/24/18 13:53 [facility] [id number]) OT-Instrumental Activities of Daily Living Home Safety Awareness Ability to Problem Solve Emergency Able to Problem Solve Situations Meal Preparation Meal Preparation Comments Pt states uses a stool in the kitchen to sit at times. Television Production Assistant Television Production Assistant Caregiver Provides Assist M6 OT- IP Functional Cognition Start: 08/24/18 13:11 Freq: Status: Active Protocol: Document 08/25/18 15:17 [facility] (Rec: 08/25/18 15:25 [facility] [id number]) Cognitive Factors Limiting Selfcare Function Cognitive Ability Level of Alertness Alert Patient Orientation Name Place Situation Attention Span Ability Capable of Focused Attention Capable of Sustained Attention Ability to Follow Commands Able to Follow Multi-Step Commands Memory Description Short Term Impaired Safety Awareness Decreased Ability to Apply Precautions Underestimates Need for Assistance Problem Solving Ability Unable to Identify Errors Needs Assist to Identify Solutions Cognitive Comments Cognitive Assessment Comments Pt still needing cues for hip precautions, able to educate regarding preautions and how to assist pt for ADL needs. M7 OT- IP Mobility and Balance Start: 08/24/18 13:11 Freq: Status: Active Protocol: Document 08/25/18 15:17 [facility] (Rec: 08/25/18 15:25 [facility] [id number]) OT- Bed Mobility Assessment Supine to Sit Supine to Sit Assist Standby Assistance Head of Bed Elevated OT-Transfer Assessment Sit to and From Stand Sit to and from Stand Standby Assistance Transfers Transfer Ability Standby Assistance Technique Transfer Destination Bed Toilet Transfer Technique Stand Step Pivot Devices Transfer Assistive Devices Gait Belt Front Wheeled Walker Comments Mobility Comments Pt able to do well with FWW today and able to get to the toilet. M8 OT- IP Objective Assessments Start: 08/24/18 13:11 Freq: Status: Active Protocol: Document 08/24/18 13:11 [facility] (Rec: 08/24/18 13:53 [facility] [id number]) OT Gross Range of Motion Upper Extremity Range of Motion Assessment Within Functional Limits OT Strength Comments Strength Comments Due to pain in right wrist not able use FWW as well as platform walker. OT-Muscle Tone Assessment Muscle Tone WNL Yes M9 OT- IP Assessment and Plan Start: 08/24/18 13:11 Freq: Status: Active Protocol: Document 08/25/18 15:17 [facility] (Rec: 08/25/18 15:25 [facility] [id number]) OT Summary Assessment and Plan Potential Rehabilitation Potential Good Analytic Complexity at Evaluation Low Summary Progress Towards Goals Progressing Toward Goals Assessment Summary Pt much improved today and going home. Discharge Recommendations OT Discharge Recommendations Home with Assistance
--- NOTE | 2018-08-25 15:33 | PC.NURSE ---
Day Shift- Discharge summary packet reviewed with pt and her [place] around 1430. Enoxaparin Prescription sent via fax to [facility] in [place] per pt's request. Enoxaparin injection instructions given and pt able to verbalize step by step instructions on proper administration. Pt states is comfortable with doing this at home as well able to inject herself with last nights dose. Pain controlled with prn [place], 1-3/10 throughout shift. Pt left unit via wheelchair with all belongings in no distress. Pt's present to drive pt home. Pt left unit at 1503.
== END 2018-08-25 15:03 | disposition home or self-care (01) | DRG 470 ==
PROVIDERS: Admitting Provider Anesthesiology; Visit Provider Orthopaedic Surgery
PROC: 0SR90JZ Replacement of Right Hip Joint with Synthetic Substitute, Open Approach (ICD-10-PCS; CPT 27130; principal; 2018-08-22 13:45)
DX: M16.11 Unilateral primary osteoarthritis, right hip (principal); E03.9 Hypothyroidism, unspecified; M79.7 Fibromyalgia; E66.9 Obesity, unspecified; G47.33 Obstructive sleep apnea (adult) (pediatric); Z87.891 Personal history of nicotine dependence; Z68.35 Body mass index [BMI] 35.0-35.9, adult; M62.838 Other muscle spasm; R53.1 Weakness
CPT/HCPCS: 36415; 72170; 85014; 85018; 97110; 97116; 97162; 97165; 97530; 97535; C1776; J0690; J1100; J1650; J1885; J2250; J2270; J2704